=== PATIENT | female | born 1965 | race Caucasian/White ===

== ENCOUNTER → 2023-12-08 | Outpatient (CLI) | payer OTHER ==
[~2023-12-08] MED LIST: JARDIANCE10 PO; K-DUR 10 MEQ T10 MEQ PO; LIORESAL 1010 MG/TAB PO; LOTRISONE CREAM15 GM TP; NEURONTIN300 MG/CAP PO; OZEMPIC1 MG/0.71 SQ; PRIL40 PO; PROAIR HFA0.09 MG/AC IH; PROVIGIL200 MG PO; ROBAXIN 50500 MG/TAB PO; TEMOVATE0.05% TP; VITAMIND3 5000 PO; VOLTAREN GEL 1%1 TU TP
== END ==
LOC: COL.RAD 10:10
DX: Z02.71 Encounter for disability determination (principal); M54.2 Cervicalgia; M25.511 Pain in right shoulder

== ENCOUNTER 2024-01-05 13:11 | Outpatient (CLI) | payer OTHER ==
[~2024-01-05] VITALS: Ht 167.6 cm; Wt 66.1 kg
[2024-01-05] MEDS ORDERED: Denosumab 60 MG/ML SYRINGE SQ ONE (13:30)
[2024-01-05 14:11] VITALS: BP 141/82; PULSE 85; TEMP 98
== END 2024-01-05 13:50 | disposition home or self-care (01) ==
LOC: EUO 13:11
DX: M81.0 Age-related osteoporosis without current pathological fracture (principal)
CPT/HCPCS: J0897